=== PATIENT | male | born 2005 | race Caucasian/White ===

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

== ENCOUNTER 2025-07-01 19:02 | Emergency (ER) | payer SELFPAY ==
--- OUTSIDE RECORDS SUMMARY | 2025-07-01 19:07 | XMS_ITS | Clinical Summary ---
Author Organization [facility] Address [address] [place] [address] Phone Care Team Providers Care Pharmacy Consultant Name Role Phone Mallory Thomas MD Primary Care Provider Allergies No known active allergies Medications ibuprofen (ADVIL,MOTRIN) 100 mg/5 mL suspension Take 12.1 mL (242 mg total) by mouth every 6 (six) hours as needed for fever 237 mL 0 6 Active VENTOLIN HFA 90 mcg/actuation inhaler 2 6 Active cefdinir (OMNICEF) 250 mg/5 mL suspension 0 6 Active loratadine (CLARITIN) 10 mg tablet 6 6 Active PROMETHAZINE VC 6.25-5 mg/5 mL syrup 0 6 Active fluticasone propionate (FLONASE) 50 mcg/actuation nasal spray USE 1 SPRAY(S) IN EACH NOSTRIL ONCE DAILY FOR 30 DAYS 5 9 Active BD TUBERCULIN SYRINGE 1 mL 27 x 1/2 Syrg See Admin Instructions Use as directed 9 9 Active Active Problems Problem Noted Date Diagnosed Date [place]-Schlatter's disease of both knees 019 Social History Tobacco Use Types Packs/Day Years Used Date Smoking Tobacco: Never Smokeless Tobacco: Never Alcohol Use Standard Drinks/Week Comments Not Asked 0 (1 standard drink = 0.6 oz pur e alcohol) Sex and Gender Information Value Date Recorded Sex Assigned at Not on file Legal Sex Male 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 Gender Identity Not on file Sexual Orientation Not on file Last Filed Vital Signs Vital Sign Reading Time Taken Comments Blood Pressure - - Pulse - - Temperature - - Respiratory Rate - - Oxygen Saturation - - Inhaled Oxygen Concentration - - Weight 71 kg (156 lb 9.6 oz) 09/25/2020 2:25 PM GAS AND OIL CHECKER Height 163.8 cm (5' 4.5 ) 09/25/2020 2:25 PM G[employer] AND OIL CHECKER Body Mass Index 26.47 09/25/2020 2:25 PM G[employer] AND OIL CHECKER Body Mass Index Percentile 94.40% 09/25/2020 2:2 5 PM GAS AND OIL CHECKER Growth Chart: CDC (Boys, 2-2 0 Years) Plan of Treatment Health Maintenance Due Date Last Done Comments Wellness Child Visit 2 Years and Older 2007 Pediatric Lipid Screening 2014 Annual Depression Screening 2016 DTap/Tdap/Td Vaccines (6 - Tdap) 2016 09/11/2009, 12/10/2006, 03/18/2006, Additional history exists HPV Vaccines (1 - Male 3-dose series) 2020 Meningococcal B Vaccine (1 of 2 - Standard) 2021 Annual Physical 2023 Hepatitis C Antibody Screen 2023 Flu Vaccine (#1) 04/25/2025 Influenza Vaccine 04/25/2025 Hepatitis B Vaccine Discontinued 03/18/2006, 01/13/2006, 2005 Hepatitis A Vaccines Discontinued 03/17/2007, 09/16/19 07 MMR Vaccines Discontinued 09/11/2009, 09/16/2006 Polio Vaccine Discontinued 09/11/2009, 02/23, 01/13/2006, Additional history exists Varicella Vaccines Discontinued 09/11/2009, 09/16/2006 Meningococcal ACWY Vaccine Aged Out N o longer eligible based on patient's age to complete this topic Insurance [place] [employer] Care Teams Pharmacy Consultant Relationship Specialty Start Date End Date Mallory Thomas MD [address], [address] [place] [id number] PCP - General 05
[2025-07-01 19:20] VITALS: BP 130/53; PULSE 81; RESP 18; TEMP 36.8; O2SAT 98
--- NOTE | 2025-07-01 23:06 | ED_ITS ---
HPI - Skin/Abscess/Foreign Bdy General: Chief complaint: Skin/Abscess/Foreign Body Stated complaint: Spiter Bite on LT arm Time Seen by Provider: 07/01/25 20:27 Source: patient Mode of arrival: ambulatory Limitations: no limitations History of Present Illness: Patient is a 19-year-old male presenting to Emergency Department for evaluation of lesion to left arm. He had a tattoo a month ago, states he thinks that out the was he was bit by a spider as there is a lesion to his arm with mild red streaking that he was told to come to the ED for. He notes that he did pop the area and there was some purulent drainage from it. No pain. No fever, nausea/vomiting, or other systemic symptoms reported. His vitals are stable at this time. MD complaint: lesion Onset (ago): day(s) Associated symptoms: Deny chills, fever(s), nausea or vomiting Related Data Previous Rx's ?Medication ?Instructions ?Recorded albuterol sulfate 90 mcg/actuation 2 inh inhalation Q4 H PRN shortness 08/31/24 aerosol inhaler of breath or wheezing #6.7 g reese doxycycline hyclate 100 mg tablet 100 mg PO BID 7 days #14 tabs 07/01/25 Allergies Allergy/AdvReac Type Severity Reaction Status Date / Time No Known Allergies Allergy Verified 08/31/24 12:15 Review of Systems General: Reports: 10 or more systems reviewed and unremarkable except in HPI and below Const: Denies: fever(s) or chills Card: Denies: chest pain Resp: Denies: dyspnea GI: Denies: abdominal pain, nausea, vomiting or diarrhea Musc: Denies: extremity pain or joint pain Skin/Breast: Reports: new lesions; Denies: rash, skin pain or skin tenderness Neuro: Denies: headache(s) PFS ED PFSH: Social History Smoking and tobacco/nicotine status: never used tobacco/nicotine Physical Exam Const: COMMON NORMALS: no acute distress, average body habitus, patient oriented x3, no limitations, healthy appearing, alert and well nourished HENMT: COMMON NORMALS: normocephalic and atraumatic HEAD & SCALP: n ormocephalic and atraumatic Neck/C-Spine: COMMON NORMALS: full ROM, no lymphadenopathy, supple and no meningeal signs Resp: COMMON NORMALS: normal respiratory effort, No use of accessory muscles and clear to auscultation bilaterally AUSCULTATION: clear to auscultation bilaterally Cardio: COMMON NORMALS: regular rate and regular rhythm RATE: regular rate RHYTHM: regular rhythm Extremity: COMMON NORMALS: full ROM and capillary refill normal Neuro: COMMON NORMALS: patient oriented x3 SENSORIUM/ORIENTATION: Yes alert MENINGEAL SIGNS: Yes no meningeal signs Skin: COMMON NORMALS: turgor normal NARRATIVE SKIN EXAM: Papular lesion to left forearm overlying tattoo, no significant erythema but there is mild area of red streaking GENERAL SKIN EXAM: turgor normal Course Vital Signs: Vital signs: Vital Signs Temperature 98.3 F 07/01/25 19:20 Pulse Rate 81 07/01/25 19:20 Respiratory Rate 18 07/01/25 19:20 Blood Pressure 130/53 07/01/25 19:20 Pulse Oximetry 98 07/01/25 19:20 Oxygen Delivery Me thod Room Air 07/01/25 19:20 MDM - Skin/Abscess/Foreign Bdy Medicial Decision Making This does appear to be some sort of bug bite lesion, mild red streaking noted. I do suspect an element of recent tattoo and immature skin that is complicating this, however he is not systemically ill and there is not any evidence of acute abscess with no fluctuance or induration on exam. With the redness we will go ahead and treat with antibiotics and have him monitor his condition for any worsening. No further action required in the ED at this time. No radiology studies performed this visit Discharge Plan Discharge Patient Disposition: Home Clinical Impression: Cellulitis Qualifiers: Site of cellulitis: extremity Site of cellulitis of extremity: upper extremity Laterality: left Qualified Code(s): L03.114 - Cellulitis of left upper limb Condition: Stable Prescriptions: New doxycycline hyclate 100 mg tablet 100 mg PO BID 7 Days Qty: 14 0RF No Action albuterol sulfate 90 mcg/actuation HFA aerosol inhaler 2 inh INHALATION Q4H PRN (Reason: shortness of breath or wheezing) Qty: 6.7 0RF Discharge Orders: Discharge ED (Routine); Ordered 07/01/25 Ordered By: Hayden Delvalle Referrals: Patricia Richter APN [Primary Care Provider, Family Practice] Patient Instructions: Patient Portal & [place] Instructions Activity Restrictions/Additional Instructions: Take doxycycline as prescribed. Monitor for any worsening of redness or swelling, fevers, vomiting, or any other signs of systemic illness. Print Language: Mongolian Coding Level of Care Code ED Leather Stitcher for Lamont Davenport
== END 2025-07-01 21:18 | disposition home or self-care (01) ==
PROVIDERS: Emergency Provider Physician Assistant; PCP Nurse Practitioner Family
DX: L03.114 Cellulitis of left upper limb (principal)
CPT/HCPCS: 99283; J9999